=== PATIENT | male | born 1990 | race Caucasian/White ===

== ENCOUNTER 2017-04-29 11:49 | Emergency (ER) | payer OTHER ==
--- NOTE | ~2017-04-29 | CT4 ---
[facility] A Service of [facility] RADIOLOGY TEXT RESULTS PATIENT: FADI BURNETT LOCATION: SED : [birth year] UNIT #: [id number] AGE: [address]: Renata Lange MD SEX: M ORDER DR: [id number] [place] [address] [id number] E MR#: [id number] Acc #: [id number] NAME: FADI BURNETT : 1990 SEX: M STUDY DATE/TIME: 04/29/2017 13:10 UNIT: SED ROOM: STUDY DESCRIPTION: CT Abd and Pelv Wo Cont Attending Physician: Renata Lange M.D. Ordering Physician: Renata Lange M.D. Primary Care Physician: No Primary Care Physician MEDICAL IMAGING REPORT This report is preliminary unless electronic signature is present. EXAM Abdomen and pelvis CT scan without contrast. HISTORY A 27-year-old patient with abdominal pain for a month. Last night it became worse. Pain in the region of the right side bellybutton. History of hernia but not further specified. FINDINGS CT abdomen and pelvis performed without IV or oral contrast media using urinary tract stone protocol. Lack of IV and oral contrast media limits evaluation for pathology other than urinary tract calculus disease. There is no prior study of the abdomen and pelvis. This CT exam was performed with one or more of the following radiation dose reduction techniques: automatic exposure control, adjustment of mA and/or kV according to patient size, and iterative reconstruction. Evaluation lung bases shows no abnormality. CT Abdomen: Noncontrast liver, spleen, pancreas, adrenal glands and kidneys are unremarkable. No evidence for hydronephrosis or intrarenal calculus or ureteral calculus. There is an abnormal appearance of the gallbladder. The wall is probably thickened and the gallbladder is contracted around multiple gallstones which contain cholesterol. Please correlate for clinical evidence of cholecystitis. There is no obvious pericholecystic fluid. If more imaging information is needed, ultrasound could be obtained. The more inferior gallbladder probably has sludge within it. There is no abdominal aortic aneurysm. [facility] A Service of [facility] RADIOLOGY TEXT RESULTS PATIENT: FADI BURNETT LOCATION: [facility] [place] : [birth year] UNIT #: [id number] AGE: [address]: Renata Lange MD SEX: M ORDER DR: Evaluation of the pelvis shows normal appearance of the appendix. Bladder is largely decompressed, and no bladder calculus is suspected. There is moderate stool in the rectum. There is no evidence for free intraperitoneal air, and there is no evidence for bowel obstruction. There is a tiny fat-containing periumbilical hernia. No drainable fluid collection is suspected. Multiple small Schmorl nodes are noted. IMPRESSION 1. This patient has multiple gallstones which contain cholesterol within a partially contracted gallbladder. Probably sludge in the more distal gallbladder. No obvious pericholecystic fluid. Please correlate for clinical evidence of cholecystitis and if more imaging information is needed, right upper quadrant ultrasound could be obtained or possibly HIDA study. 2. The appendix is radiographically unremarkable and there is nothing to suggest bowel obstruction. There is no free intraperitoneal air or drainable fluid collection. There is a tiny fat-containing periumbilical hernia. STAT * RESULT Dictated by... Pinky Márquez M.D. THIS IS AN ELECTRONICALLY VERIFIED REPORT Pinky Márquez M.D. at 04/29/2017 3:44 PM TODD/karen TD: 04/29/2017 14:19 JOB #: [id number] MEDICAL IMAGING REPORT Page 1 of 1
[~2017-04-29 11:49] MED LIST: ALBUTEROL0.63 MG/3 IH; ALBUTEROL17 GM INH; PREDNISONE10 MG PO; PROMETHAZINE D118 ML PO; VEETIDS 500500 M1 PO; VOLTAREN75 MG PO; ZESTRIL10 M2 PO
[2017-04-29] MEDS ORDERED: NO MEDICATIONS (12:22)
[2017-04-29 12:58] LABS: BASOPHIL# 0.1 X10e3 (0-0.3); BASOPHIL% 0.8 % (0-2.5); EOSINOPHIL# 0.2 X10e3 (0-0.7); EOSINOPHIL% 3.1 % (0.0-7.0); HEMATOCRIT 42.2 % (38.0-50.0); HEMOGLOBIN 14.3 gm/dL (13.0-16.0); LYMPHOCYTE# 1.7 X10e3 (1.0-3.5); LYMPHOCYTE% 26.3 % (17.0-45.0); MEAN CELL VOLUME 82.6 FL (83-96); MEAN CORPUSCULAR HEMOGLOBIN 27.9 PG (28-34); MEAN CORPUSCULAR HGB CONC 33.8 g/dL (30-36); MEAN PLATELET VOLUME 7.7 FL (6.5-11.5); MONOCYTE# 0.6 X10e3 (0-1.0); MONOCYTE% 9.1 % (3.0-12.0); NEUTROPHIL# 3.9 X10e3 (1.5-7.1); NEUTROPHIL% 60.7 % (40-75); PLATELET COUNT 209 X10e3 (140-420); RED BLOOD COUNT 5.11 X10e (3.90-5.60); RED CELL DISTRIBUTION WIDTH 13.6 % (11.0-15.5); WHITE BLOOD COUNT 6.4 X10e3 (4.0-10.5)
[2017-04-29 13:01] LABS: DIFF IND NO
[2017-04-29 13:06] LABS: URINE SOURCE CLEAN CATCH
[2017-04-29 13:09] LABS: URINE APPEARANCE CLEAR; URINE BILIRUBIN NEG (NEG); URINE BLOOD NEG (NEG); URINE COLOR YELLOW; URINE GLUCOSE NEG (NORM); URINE KETONE NEG (NEG); URINE LEUKOCYTE ESTERASE NEG (NEG); URINE NITRATE NEG (NEG); URINE PROTEIN NEG (NEG); URINE SPECIFIC GRAVITY 1.025 (1.003-1.035); URINE UROBILINOGEN 0.2 MG/DL (NORM)
[2017-04-29 13:10] LABS: MICRO INDICATED? NO
[2017-04-29 13:19] LABS: AMPHETAMINE POS (NEG); BARBITURATES NEG (NEG); BENZODIAZEPINES POS (NEG); COCAINE NEG (NEG); MARIJUANA POS (NEG); OPIATES NEG (NEG); TRICYCLIC ANTIDEPRESSANTS POS (NEG); U METHADONE NEG (NEG)
[2017-04-29 13:47] LABS: ALBUMIN SERUM 4.5 g/dL (3.5-5.0); BILIRUBIN, DIRECT 0.1 mg/dL (0.0-0.2); BILIRUBIN,INDIRECT 0.2 mg/dL (0.0-0.9); BILIRUBIN,TOTAL 0.3 mg/dL (0.2-2.0); BUN/CREATININE RATIO 12.5; CALCIUM SERUM 8.9 mg/dL (8.4-10.2); CREATININE SERUM 0.8 mg/dL (0.6-1.4); GLOM FILT RATE Estimated 120.8 mL/min (>60); POTASSIUM 4.1 mmol/L (3.5-5.1); PROTEIN TOTAL SERUM 7.7 g/dL (6.0-8.3)
[2017-05-08] MEDS ORDERED: ZESTORETIC 20-1 EAC2 PO (09:54)
== END 2017-04-29 14:59 | disposition home or self-care (01) ==
LOC: SED 11:49
PROVIDERS: Student in an Organized Health Care Education/Training Program
DX: K80.70 Calculus of gallbladder and bile duct without cholecystitis without obstruction (principal); F19.10 Other psychoactive substance abuse, uncomplicated; I10 Essential (primary) hypertension; J45.909 Unspecified asthma, uncomplicated; F17.200 Nicotine dependence, unspecified, uncomplicated; Z88.8 Allergy status to other drugs, medicaments and biological substances
CPT/HCPCS: 36415; 74176; 80048; 80076; 80307; 81003; 82150; 83690; 85025; 96374; 96375; 99284; J1885; J2270; J2405

== ENCOUNTER → 2017-05-08 | Day surgery (SDC) | payer OTHER ==
[~2017-05-08] MED LIST changes: +NO MEDICATIONS; +ZESTORETIC 20-1 EAC2 PO
--- NOTE | ~2017-05-08 | OR ---
Unit #: [id number] #: [id number] Patient: FADI BURNETT [id number] [facility] [address] [place], [place] [address] [id number] O MR#: [id number] NAME: FADI BURNETT ROOM: Date of Procedure: 05/08/2017 Admission Date: 05/08/2017 Surgeon: Mesfin Olivas M.D. : 1990 Attending Physician: Mesfin Olivas M.D. OPERATIVE REPORT PRIMARY CARE PHYSICIAN [place]. PREOPERATIVE DIAGNOSES Chronic cholecystitis with cholelithiasis and umbilical hernia. POSTOPERATIVE DIAGNOSES Chronic cholecystitis with cholelithiasis and umbilical hernia. PROCEDURES PERFORMED Laparoscopic cholecystectomy and open umbilical hernia repair. ANESTHESIA General endotracheal anesthesia. ESTIMATED BLOOD LOSS Less than 20 mL. INDICATIONS FOR PROCEDURE A 27-year-old gentleman, who is having postprandial nausea and right upper quadrant pain radiating to the flank. Ultrasound revealed cholelithiasis with normal biliary ductal system. Preoperative liver chemistries were normal. On physical examination, he had an incidental umbilical hernia that was tender to palpation. DESCRIPTION OF PROCEDURE The patient was admitted to [facility], positively identified, and transported to the operating room, and after induction of general endotracheal anesthesia, he received IV antibiotics per SCIP protocol. Abdominal wall hair was clipped and he was prepped and draped in usual sterile fashion. A transverse incision below the umbilicus was made in the skin line and then the umbilical skin was from the hernia sac. Hernia sac was grasped and elevated and excised at the level of the fascia. Stay sutures were then placed and a Lydia trocar was placed. Pneumoperitoneum was created. The patient was appropriately positioned. The epigastric and lateral ports were placed under direct vision. The gallbladder was grasped and elevated. Adhesions were stripped away by sharp and blunt dissection from the gallbladder until the infundibulum could be identified and retracted laterally. [place] was dissected out clearly identifying the cystic duct, gallbladder, and cystic duct-common bile duct junction. A single clip was placed in the cystic duct, centered to gallbladder and then 3 clips were placed Unit #: [id number] #: [id number] Patient: FADI BURNETT distally and the cystic duct was sharply divided. Posteriorly, the cystic artery was dissected out, doubly clipped proximally and distally and divided. I then dissected the gallbladder from the liver bed using cautery dissection. Once it was freed up from its hepatic attachments, it was placed in an EndoCatch bag and brought out through the Lydia trocar site. Pneumoperitoneum was recreated. There was good hemostasis. Sponge counts were correct. The epigastric fascial defect was closed using a neoClose device and the closure was airtight. There was no bleeding from any trocar site. The pneumoperitoneum was reduced. The Lydia trocar was removed and then the fascial defect at the umbilicus was closed with multiple interrupted 0 Ethibond sutures. An umbilicoplasty was performed. Local anesthetic was infiltrated into the skin and soft tissue at all incision sites. The soft tissue at the umbilicus was reapproximated using 3-0 Vicryl interrupted suture and the skin was reapproximated using 4-0 Monocryl running subcuticular closure and Dermabond skin adhesive. Sponges and needle counts were correct x3. The patient tolerated the procedure well and was transported to recovery in stable condition. Findings and postoperative instructions will be discussed with his family. All the instructions were gone over with the patient and his family prior to surgery. Dictated by... Justin Lopez/carlos TD: 05/09/2017 04:40 JOB #: [id number] OPERATIVE REPORT Page 1 of 1 X Mesfin Olivas MD X PROCEDURE OPERATIVE NOTE
--- NOTE | ~2017-05-08 | EKG ---
PATIENT: FADI BURNETT UNIT #: [id number] Ventricular Rate: 76 BPM Atrial Rate: 76 BPM P-R Interval: 164 ms QRS Duration: 100 ms Q-T Interval: 356 ms QTC Calculation(Bezet): 400 ms P [place]: 39 degrees Calculated R [place]: 13 degrees Calculated T [place]: 26 degrees Diagnosis Line: Normal sinus rhythm Diagnosis Line: Normal ECG Diagnosis Line: When compared with ECG of 14-JUL-2015 21:57, Diagnosis Line: No significant change was found Diagnosis Line: Confirmed by JACKIE CARRILLO MD ([id number]) on Diagnosis Line: 05/09/2017 8:29:19 AM INTERPRETING MD: GERARDO PICKENS
[2017-05-08 10:52] LABS: CALCIUM SERUM 9.1 mg/dL (8.4-10.2); GLOM FILT RATE Estimated 101.3 mL/min (>60); POTASSIUM 4.4 mmol/L (3.5-5.1)
== END | disposition home or self-care (01) ==
LOC: CSUR 09:18
PROVIDERS: Specialist
DX: K80.10 Calculus of gallbladder with chronic cholecystitis without obstruction (principal); J44.9 Chronic obstructive pulmonary disease, unspecified; F17.210 Nicotine dependence, cigarettes, uncomplicated; I10 Essential (primary) hypertension; F41.9 Anxiety disorder, unspecified; Z88.6 Allergy status to analgesic agent; Z88.8 Allergy status to other drugs, medicaments and biological substances; Z98.890 Other specified postprocedural states
CPT/HCPCS: 80048; 88304; 93005; J0131; J0330; J0690; J1100; J1170; J1644; J1885; J2250; J2405; J3010